=== PATIENT | male | born 1945 | race Caucasian/White ===

== ENCOUNTER → 2017-03-07 | Outpatient (CLI) | payer MEDICARE, BC ==
--- NOTE | 2017-03-07 16:14 | CR ---
EXAMINATION: Lumbar spine HISTORY: Pain COMPARISON: None TECHNIQUE: 3 views FINDINGS: The lumbar spinal alignment appears normal. The vertebral body heights appear maintained. Prevertebral osteophytes are noted most prominent at L5-S1. No fracture or acute osseous abnormality . Disc space narrowing is noted at L4-L5 and L5-S1. No fracture or acute osseous abnormality. Facet hypertrophy is noted. The SI joints are symmetric. Aortic calcifications are present. 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
== END ==
LOC: MW.CHIM 08:59
PROVIDERS: ATTEND Internal Medicine
DX: Z12.5 Encounter for screening for malignant neoplasm of prostate (principal); I10 Essential (primary) hypertension; K57.30 Diverticulosis of large intestine without perforation or abscess without bleeding; R73.01 Impaired fasting glucose; M54.9 Dorsalgia, unspecified; N18.9 Chronic kidney disease, unspecified; M54.5 Low back pain; B35.4 Tinea corporis; I12.9 Hypertensive chronic kidney disease with stage 1 through stage 4 chronic kidney disease, or unspecified chronic kidney disease
CPT/HCPCS: 36415; 72100; 72100-26; 80053; 80061; 83036; 84439; 84443; 85025; 85652; 86140; 99214

== ENCOUNTER → 2017-03-08 | Outpatient (CLI) | payer MEDICARE, BC ==
--- NOTE | 2017-03-08 15:14 | US ---
EXAMINATION: Renal ultrasound HISTORY: Abnormal findings of blood chemistry COMPARISON: None TECHNIQUE: Grayscale and color Doppler images obtained FINDINGS: The right kidney measures 13 cm and the left kidney measures 11.8 cm [id number] without evidence of hydronephrosis. The renal cortical echotexture is increased bilaterally. There is a cyst within the midpole of the right kidney. No abnormal renal masses. Normal color Doppler flow bilater ally. The urinary bladder appears normal with a trace post void residual. IMPRESSION: 1. Increased renal cortical echotexture bilaterally, likely representing medical renal disease. 2. No acute findings.
== END | disposition home or self-care (01) ==
LOC: MW.US 09:13
PROVIDERS: ATTEND Internal Medicine
DX: R79.89 Other specified abnormal findings of blood chemistry (principal); R93.41 Abnormal radiologic findings on diagnostic imaging of renal pelvis, ureter, or bladder
CPT/HCPCS: 76775; 76775-26

== ENCOUNTER → 2017-03-08 | Outpatient (CLI) | payer MEDICARE, BC | END | disposition home or self-care (01) | LOC: MW.CHIM 15:11 | PROVIDERS: ATTEND Internal Medicine | DX: R79.89 Other specified abnormal findings of blood chemistry (principal); Z53.9 Procedure and treatment not carried out, unspecified reason | CPT/HCPCS: 76775; 76775-26 ==

== ENCOUNTER → 2017-03-09 | Outpatient (CLI) | payer MEDICARE, BC | LOC: MW.CHIM 09:16 | PROVIDERS: ATTEND Internal Medicine | DX: R79.89 Other specified abnormal findings of blood chemistry (principal) | CPT/HCPCS: 36415; 82570; 82575; 84156 ==

== ENCOUNTER 2022-03-23 10:49 | Day surgery (SDC) | payer MEDICARE, OTHER ==
[~2022-03-23 10:49] MED LIST: Acetaminophen 1,000 MG in Premix Bag 1 BAG IV SCH; Albuterol 0.083% 2.5 MG/3 ML Neb Soln NEB PRN; HYDROmorphone 1 MG/ML Syringe IVPUSH PRN; Lactated Ringers 1,000 ML IV SCH; Metoclopramide 10 MG/2 ML SDV IVPUSH PRN; Morphine 4 MG/ML VIAL IVPUSH PRN; Naloxone 0.4 MG/ML SDV IVPUSH PRN; Ondansetron 4 MG/2 ML SDV IVPUSH PRN; Pregabalin 75 MG Cap PO SCH; Ropivacaine/Ketorolac/Ketamine 100-15-30/50 ML Syringe INJECT ONE; ceFAZolin 2 GM in Premix Bag 1 BAG IV SCH; fentaNYL 100 MCG/2 ML SDV IVPUSH PRN
[2022-03-23] MEDS ORDERED: Lactated Ringers 1,000 ML IV SCH (11:00)
[2022-03-23] MEDS ORDERED: Pregabalin 75 MG Cap PO SCH (11:00)
[2022-03-23] MEDS ORDERED: Acetaminophen 1,000 MG in Premix Bag 1 BAG IV SCH (11:00)
[2022-03-23] MEDS ORDERED: propofoL 100 ML ONE (12:16)
[2022-03-23] MEDS ORDERED: Bupivacaine 0.5% 30 ML SDV ONE (12:17)
[2022-03-23] MEDS ORDERED: Octyl 2-Cyanoacrylate 1 Tube ONE (12:18)
[2022-03-23] MEDS ORDERED: fentaNYL 100 MCG/2 ML SDV ONE (12:22)
[2022-03-23] MEDS ORDERED: Midazolam 1 MG/ML 2 ML SDV ONE (12:22)
[2022-03-23] MEDS ORDERED: Ondansetron 4 MG/2 ML SDV ONE (12:22)
[2022-03-23] MEDS ORDERED: Rocuronium Bromide 50 MG/5 ML Syringe ONE (12:24)
[2022-03-23] MEDS ORDERED: ePHEDrine 50 MG/ML SDV ONE (13:25)
[2022-03-23] MEDS ORDERED: Sugammadex Sodium 200 MG/2 ML VIAL ONE (13:32)
[2022-03-23] MEDS ORDERED: Lidocaine 1% 5 ML VIAL ONE (13:46)
[2022-03-23 14:45] VITALS: BP 115/71; PULSE 71
[2022-03-24] MEDS ORDERED: Lidocaine 1% 5 ML VIAL ONE (07:52)
== END 2022-03-23 15:25 | disposition home or self-care (01) ==
LOC: MW.SDS 10:49
PROVIDERS: ATTEND Surgery
DX: K42.0 Umbilical hernia with obstruction, without gangrene (principal); I48.91 Unspecified atrial fibrillation; I12.9 Hypertensive chronic kidney disease with stage 1 through stage 4 chronic kidney disease, or unspecified chronic kidney disease; N40.0 Benign prostatic hyperplasia without lower urinary tract symptoms; N18.9 Chronic kidney disease, unspecified; Z79.899 Other long term (current) drug therapy; Z98.890 Other specified postprocedural states
CPT/HCPCS: 49587; A9270; C1781; J0131; J0690; J2250; J2405; J2704; J3010; J3490; J7120; 00750; 64488; 99100

== ENCOUNTER 2023-04-24 15:53 | Emergency (ER) | payer MEDICARE ==
[2023-04-24 16:00] VITALS: BP 114/75; PULSE 69
[2023-04-24] MEDS ORDERED: Lidocaine 1% 5 ML VIAL INJECT ONE (16:03)
[2023-04-24] MEDS ORDERED: Diphtheria,Pertussis(Acell),Tetanus Vaccine 0.5 ML Syringe IM ONE (16:03)
== END 2023-04-24 16:59 | disposition home or self-care (01) ==
LOC: MW.ED 15:53
DX: S81.811A Laceration without foreign body, right lower leg, initial encounter (principal); I48.91 Unspecified atrial fibrillation; I10 Essential (primary) hypertension; N40.0 Benign prostatic hyperplasia without lower urinary tract symptoms; Z79.01 Long term (current) use of anticoagulants; Z23 Encounter for immunization; Z79.899 Other long term (current) drug therapy; W18.30XA Fall on same level, unspecified, initial encounter
CPT/HCPCS: 12004; 90471; 90715; 99283; 99283-25; J3490

== ENCOUNTER 2023-04-27 09:29 | Emergency (ER) | payer MEDICARE ==
[2023-04-27 10:10] VITALS: BP 138/87; PULSE 94
== END 2023-04-27 10:42 | disposition home or self-care (01) ==
LOC: MW.ED 09:29
DX: S81.811D Laceration without foreign body, right lower leg, subsequent encounter (principal); I48.91 Unspecified atrial fibrillation; I10 Essential (primary) hypertension; N40.0 Benign prostatic hyperplasia without lower urinary tract symptoms; Z48.02 Encounter for removal of sutures; Z79.01 Long term (current) use of anticoagulants; Z79.899 Other long term (current) drug therapy; W20.8XXD Other cause of strike by thrown, projected or falling object, subsequent encounter
CPT/HCPCS: 99281; 99283

== ENCOUNTER 2023-05-05 08:16 | Emergency (ER) | payer MEDICARE ==
[2023-05-05 08:48] VITALS: BP 106/54; PULSE 92
== END 2023-05-05 08:51 | disposition left against medical advice (07) ==
LOC: MW.ED 08:16
DX: S81.811D Laceration without foreign body, right lower leg, subsequent encounter (principal); Z48.02 Encounter for removal of sutures; W20.8XXD Other cause of strike by thrown, projected or falling object, subsequent encounter
CPT/HCPCS: 99281

== ENCOUNTER 2023-10-26 09:15 | Emergency (ER) | payer MEDICARE ==
[2023-10-26] MEDS ORDERED: Ondansetron 4 MG/2 ML SDV IVPUSH ONE (09:16)
[2023-10-26] MEDS ORDERED: Aspirin 81 MG Tab.Chew PO ONE (09:16)
[2023-10-26 09:30] LABS: BASOPHILS ABSOLUTE AUTO 0.08 K/uL (0.00-0.20); BASOPHILS PERCENT AUTO 0.6 % (0.0-1.0); EOSINOPHILS ABSOLUTE AUTO 0.97 K/uL (0.00-0.45); EOSINOPHILS PERCENT AUTO 7.3 % (0.0-6.0); HEMATOCRIT 28.6 % (42.0-52.0); HEMOGLOBIN 9.9 g/dL (14.0-18.0); IMMATURE GRAN ABSOLUTE AUTO 0.05 K/uL (0.00-0.05); IMMATURE GRAN PERCENT AUTO 0.4 % (0.0-0.4); LYMPHOCYTES ABSOLUTE AUTO 1.75 K/uL (1.00-4.80); LYMPHOCYTES PERCENT AUTO 13.2 % (24.0-44.0); MEAN CORPUSCULAR HEMOGLOBIN 30.9 pg (28.0-32.0); MEAN CORPUSCULAR HGB CONC 34.6 g/dL (32.0-36.0); MEAN CORPUSCULAR VOLUME 89.4 fL (83.0-99.0); MEAN PLATELET VOLUME 9.9 fL (9.4-12.4); MONOCYTES ABSOLUTE AUTO 0.94 K/uL (0.00-0.80); MONOCYTES PERCENT AUTO 7.1 % (0.0-8.0); NEUTROPHILS ABSOLUTE AUTO 9.42 K/uL (1.80-7.70); NEUTROPHILS PERCENT AUTO 71.4 % (41.0-71.0); PLATELET COUNT,PLT 266 K/uL (150-400); WHITE BLOOD CELL COUNT,WBC 13.21 K/uL (3.9-11.3)
[2023-10-26] MEDS ORDERED: Tenecteplase 50 MG Kit IV STA (09:35)
[2023-10-26] MEDS ORDERED: Clopidogrel 75 MG Tab PO ONE ×2 (09:39→09:47)
[2023-10-26] MEDS ORDERED: Heparin Sodium 5,000 Units/ML Vial IVPUSH ONE (09:41)
[2023-10-26 09:42] LABS: INR 1.1 (0.86-1.11); PTT,PARTIAL THROMBOPLSTIN TIME 23.8 SEC (23.9-30.7)
[2023-10-26] MEDS ORDERED: Heparin Sodium/0.45% NaCl 500 ML IV SCH (09:45)
[2023-10-26 10:02] LABS: ALBUMIN 3.2 g/dL (3.4-5.0); BILIRUBIN TOTAL 1.1 mg/dL (0.2-1.0); CALCIUM 8.8 mg/dL (8.5-10.1); CREATININE 5.2 mg/dL (0.8-1.3); EST CRCL DRUG DOSING (CG) 12.22 mL/min; MAGNESIUM 1.5 mg/dL (1.8-2.4); PROTEIN TOTAL,TP 6.5 g/dL (6.4-8.2)
[2023-10-26 10:04] LABS: CORONAVIRUS COVID-19 NAA NEGATIVE (NEGATIVE); INFLUENZA A NAA NEGATIVE (NEGATIVE); INFLUENZA B NAA NEGATIVE (NEGATIVE)
[2023-10-26] MEDS ORDERED: Sodium Chloride 0.9% 1,000 ML IV ONE (10:09)
[2023-10-26] MEDS ORDERED: Potassium Chloride 20 MEQ in Premix Bag 1 BAG IV ONE (10:09)
[2023-10-26] MEDS ORDERED: Magnesium Sulfate/Water 2 GM in Premix Bag 1 BAG IV ONE (10:11)
[2023-10-26 11:25] VITALS: BP 126/76; PULSE 76
== END 2023-10-26 11:21 ==
LOC: MW.ED 09:15
DX: I21.3 ST elevation (STEMI) myocardial infarction of unspecified site (principal); I10 Essential (primary) hypertension; I48.91 Unspecified atrial fibrillation; Z90.49 Acquired absence of other specified parts of digestive tract; Z79.899 Other long term (current) drug therapy; Z20.822 Contact with and (suspected) exposure to COVID-19
CPT/HCPCS: 0240U; 36415; 71045; 80053; 83605; 83690; 83735; 83880; 84484; 85025; 85610; 85730; 92977; 93005; 96365; 96368; 96375; 96376; 99291; A9270; J1644; J2405; J3101; J3475; J3480; J7030; 93010

== ENCOUNTER 2023-11-14 11:31 | Emergency (ER) | payer MEDICARE ==
[2023-11-14] MEDS ORDERED: Morphine 4 MG/ML Syringe IVPUSH ONE (12:21)
[2023-11-14] MEDS ORDERED: Ondansetron 4 MG/2 ML SDV IVPUSH ONE ×2 (12:21→16:29)
[2023-11-14 12:38] LABS: BASOPHILS ABSOLUTE AUTO 0.09 K/uL (0.00-0.20); BASOPHILS PERCENT AUTO 0.7 % (0.0-1.0); EOSINOPHILS ABSOLUTE AUTO 0.18 K/uL (0.00-0.45); EOSINOPHILS PERCENT AUTO 1.3 % (0.0-6.0); HEMATOCRIT 26.9 % (42.0-52.0); HEMOGLOBIN 8.9 g/dL (14.0-18.0); IMMATURE GRAN ABSOLUTE AUTO 0.13 K/uL (0.00-0.05); LYMPHOCYTES ABSOLUTE AUTO 0.96 K/uL (1.00-4.80); LYMPHOCYTES PERCENT AUTO 7.2 % (24.0-44.0); MEAN CORPUSCULAR HEMOGLOBIN 30.9 pg (28.0-32.0); MEAN CORPUSCULAR HGB CONC 33.1 g/dL (32.0-36.0); MEAN CORPUSCULAR VOLUME 93.4 fL (83.0-99.0); MEAN PLATELET VOLUME 9.8 fL (9.4-12.4); MONOCYTES PERCENT AUTO 5.2 % (0.0-8.0); NEUTROPHILS ABSOLUTE AUTO 11.29 K/uL (1.80-7.70); NEUTROPHILS PERCENT AUTO 84.6 % (41.0-71.0); PLATELET COUNT,PLT 556 K/uL (150-400); RED BLOOD CELL COUNT 2.88 M/uL (4.52-5.90); WHITE BLOOD CELL COUNT,WBC 13.35 K/uL (3.9-11.3)
[2023-11-14 12:39] LABS: INR 1.14 (0.86-1.11); PTT,PARTIAL THROMBOPLSTIN TIME 26.5 SEC (23.9-30.7)
[2023-11-14 12:50] LABS: A/G RATIO 0.8 (0.9-1.6); ALBUMIN 2.6 g/dL (3.4-5.0); BILIRUBIN TOTAL 0.8 mg/dL (0.2-1.0); CALCIUM 8.3 mg/dL (8.5-10.1); CARBON DIOXIDE,CO2 23.8 mmol/L (21.0-32.0); CREATININE 5.7 mg/dL (0.8-1.3); EST CRCL DRUG DOSING (CG) 11.01 mL/min; POTASSIUM,K 4.6 mmol/L (3.5-5.1); PROTEIN TOTAL,TP 5.7 g/dL (6.4-8.2)
[2023-11-14] MEDS ORDERED: HYDROmorphone 1 MG/ML Syringe IVPUSH ONE ×2 (13:31→15:19)
[2023-11-14 16:00] VITALS: BP 107/75; PULSE 81
== END 2023-11-14 16:41 ==
LOC: MW.ED 11:31
DX: T81.72XA Complication of vein following a procedure, not elsewhere classified, initial encounter (principal); I10 Essential (primary) hypertension; Z79.899 Other long term (current) drug therapy
CPT/HCPCS: 36415; 76881; 80053; 85025; 85610; 85730; 96374; 96375; 96376; 99284; J1170; J2270; J2405

== ENCOUNTER 2024-05-26 11:11 | Emergency (ER) | payer MEDICARE ==
[2024-05-26] MEDS: Sodium Chloride 0.9% 500 ML IV ONE (11:35)
[2024-05-26] MEDS: diphenhydrAMINE 50 MG/ML SDV IVPUSH ONE (11:35)
[2024-05-26] MEDS: Sodium Chloride 0.9% 2.5 ML Syringe FLUSH PRN (11:36)
[2024-05-26] MEDS: Metoclopramide 10 MG/2 ML SDV IVPUSH ONE (11:36)
[2024-05-26] MEDS: Sodium Chloride 0.9% 10 ML Syringe FLUSH PRN (11:36)
[2024-05-26 11:37] LABS: BASOPHILS ABSOLUTE AUTO 0.05 K/uL (0.00-0.20); BASOPHILS PERCENT AUTO 0.8 % (0.0-1.0); HEMATOCRIT 33.8 % (42.0-52.0); HEMOGLOBIN 11.2 g/dL (14.0-18.0); IMMATURE GRAN ABSOLUTE AUTO 0.01 K/uL (0.00-0.05); IMMATURE GRAN PERCENT AUTO 0.2 % (0.0-0.4); LYMPHOCYTES ABSOLUTE AUTO 0.76 K/uL (1.00-4.80); LYMPHOCYTES PERCENT AUTO 11.4 % (24.0-44.0); MEAN CORPUSCULAR HEMOGLOBIN 31.7 pg (28.0-32.0); MEAN CORPUSCULAR HGB CONC 33.1 g/dL (32.0-36.0); MEAN CORPUSCULAR VOLUME 95.8 fL (83.0-99.0); MEAN PLATELET VOLUME 10.4 fL (9.4-12.4); MONOCYTES ABSOLUTE AUTO 0.51 K/uL (0.00-0.80); MONOCYTES PERCENT AUTO 7.7 % (0.0-8.0); NEUTROPHILS ABSOLUTE AUTO 5.13 K/uL (1.80-7.70); NEUTROPHILS PERCENT AUTO 76.9 % (41.0-71.0); PLATELET COUNT,PLT 162 K/uL (150-400); RED BLOOD CELL COUNT 3.53 M/uL (4.52-5.90); WHITE BLOOD CELL COUNT,WBC 6.66 K/uL (3.9-11.3)
[2024-05-26 12:01] LABS: A/G RATIO 1.1 (0.9-1.6); ALBUMIN 3.6 g/dL (3.4-5.0); BILIRUBIN TOTAL 0.9 mg/dL (0.2-1.0); CALCIUM 8.5 mg/dL (8.5-10.1); CARBON DIOXIDE,CO2 22.9 mmol/L (21.0-32.0); CREATININE 6.2 mg/dL (0.8-1.3); EST CRCL DRUG DOSING (CG) 10.29 mL/min; MAGNESIUM 1.9 mg/dL (1.8-2.4); POTASSIUM,K 3.9 mmol/L (3.5-5.1); PROTEIN TOTAL,TP 6.8 g/dL (6.4-8.2)
[2024-05-26 12:06] LABS: INR 1.03 (0.86-1.11)
[2024-05-26 12:59] VITALS: BP 143/79; PULSE 61
== END 2024-05-26 14:26 | disposition home or self-care (01) ==
LOC: MW.ED 11:11
DX: R42 Dizziness and giddiness (principal); I48.91 Unspecified atrial fibrillation; I25.10 Atherosclerotic heart disease of native coronary artery without angina pectoris; N18.9 Chronic kidney disease, unspecified; I25.2 Old myocardial infarction; Z95.5 Presence of coronary angioplasty implant and graft; Z90.49 Acquired absence of other specified parts of digestive tract; Z79.899 Other long term (current) drug therapy; Z79.82 Long term (current) use of aspirin
CPT/HCPCS: 36415; 70450; 80053; 83735; 84484; 85025; 85610; 85730; 93005; 96361; 96374; 96375; 99284; J1200; J2765; J3490; J7040; 93010

== ENCOUNTER 2025-08-19 08:26 | Day surgery (SDC) | payer MEDICARE, OTHER ==
[~2025-08-19 08:26] MED LIST changes: -Acetaminophen 1,000 MG in Premix Bag 1 BAG IV SCH; -Albuterol 0.083% 2.5 MG/3 ML Neb Soln NEB PRN; -HYDROmorphone 1 MG/ML Syringe IVPUSH PRN; -Lactated Ringers 1,000 ML IV SCH; -Metoclopramide 10 MG/2 ML SDV IVPUSH PRN; -Morphine 4 MG/ML VIAL IVPUSH PRN; -Naloxone 0.4 MG/ML SDV IVPUSH PRN; -Ondansetron 4 MG/2 ML SDV IVPUSH PRN; -Pregabalin 75 MG Cap PO SCH; -Ropivacaine/Ketorolac/Ketamine 100-15-30/50 ML Syringe INJECT ONE; +Sodium Chloride 0.9% 10 ML Syringe FLUSH PRN; +Sodium Chloride 0.9% 2.5 ML Syringe FLUSH PRN; -ceFAZolin 2 GM in Premix Bag 1 BAG IV SCH; -fentaNYL 100 MCG/2 ML SDV IVPUSH PRN; +propofoL 500 MG/50 ML 50 ML ONE
[2025-08-19] MEDS: Lactated Ringers 1,000 ML IV SCH (09:07)
[2025-08-19 13:17] VITALS: BP 123/69; PULSE 64
== END 2025-08-19 11:35 | disposition home or self-care (01) ==
LOC: MW.SDS 08:26
PROVIDERS: ATTEND Surgery
DX: D12.5 Benign neoplasm of sigmoid colon (principal); K57.30 Diverticulosis of large intestine without perforation or abscess without bleeding; K52.9 Noninfective gastroenteritis and colitis, unspecified; I48.91 Unspecified atrial fibrillation; I12.9 Hypertensive chronic kidney disease with stage 1 through stage 4 chronic kidney disease, or unspecified chronic kidney disease; N18.9 Chronic kidney disease, unspecified; I25.10 Atherosclerotic heart disease of native coronary artery without angina pectoris; Z79.82 Long term (current) use of aspirin; Z79.899 Other long term (current) drug therapy; Z86.0101 Personal history of adenomatous and serrated colon polyps
CPT/HCPCS: 45385; 88305; J2704; J7120; 00811; 99100